=== PATIENT | female | born 1990 | race American Indian/Alaskan Native ===

== ENCOUNTER 2020-06-03 18:50 | Emergency (ER) | payer OTHER ==
[2020-06-03] MEDS ORDERED: BUTALB/ACETAMINOPHEN/CAFFEINE TAB PO ONE (22:54)
[2020-06-03] MEDS ORDERED: IBUPROFEN 600 MG TAB PO ONE (22:55)
[2020-06-03] MEDS ORDERED: ONDANSETRON 4 MG ODT TAB PO ONE (22:55)
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
[2020-06-04 00:44] VITALS: BP 128/76
== END 2020-06-04 00:44 | disposition home or self-care (01) ==
LOC: ED 18:50
DX: S00.83XA Contusion of other part of head, initial encounter (principal); S00.03XA Contusion of scalp, initial encounter; Z98.890 Other specified postprocedural states; Z79.1 Long term (current) use of non-steroidal anti-inflammatories (NSAID); Z79.899 Other long term (current) drug therapy; Y04.2XXA Assault by strike against or bumped into by another person, initial encounter; Y93.89 Activity, other specified; Y92.89 Other specified places as the place of occurrence of the external cause; Y99.8 Other external cause status
CPT/HCPCS: 70450; 70486; Q0162

== ENCOUNTER 2020-09-26 15:31 | Emergency (ER) | payer OTHER ==
[2020-09-26 16:06] VITALS: BP 131/88
--- NOTE | 2020-09-26 17:13 | Event Note ---
ED Screening Note ED Screening Note: n/v that began 4 days ago no diarrhea no fever no abd pain no urinary symptoms no abnormal discharge PMHx none no allergies to meds LNMP: Jun 2020 has not seen anyone for this no vaginal bleeding st This initial assessment/diagnostic orders/clinical plan/treatment(s) is/are subject to change based on patients health status, clinical progression and re- assessment by fellow clinical providers in the ED. Further treatment and workup at subsequent clinical providers discretion. Patient/guardian urged not to elope from the ED as their condition may be serious if not clinically assessed and managed. Initial orders include: labs, ua, us
[2020-09-26 17:57] LABS: Alanine Aminotransferase 41 units/L (7-56); Albumin 3.9 g/dL (3.9-5); Blood Urea Nitrogen 8 mg/dL (7-17); Calcium 9.7 mg/dL (8.4-10.2); Hemolysis Index 10
[2020-09-26 17:58] LABS: Bilirubin,Urine NEG (Negative); Blood,Urine NEG (Negative); Color,Urine Amber (Yellow); Mucus,Urine FEW /HPF; RBC,Urine < 1.0 /HPF (0.0-6.0)
[2020-09-26 18:04] LABS: BUN/Creatinine Ratio 11
[2020-09-26 18:06] LABS: Basophils % (Auto) 0.2 % (0.0-1.8); Eosinophils # (Auto) 0.1 K/mm3 (0.0-0.4); Eosinophils % (Auto) 0.5 % (0.0-4.3); Hematocrit 44.3 % (30.3-42.9); Hemoglobin 15.1 gm/dl (10.1-14.3); Lymphocytes # (Auto) 2.8 K/mm3 (1.2-5.4); Lymphocytes % (Auto) 18.5 % (13.4-35.0); Mean Corpuscular HGB Conc 34 % (30-34); Mean Corpuscular Volume 90 fl (79-97); Monocytes # (Auto) 1.4 K/mm3 (0.0-0.8); Monocytes % (Auto) 9.5 % (0.0-7.3); Platelet Count 306 K/mm3 (140-440); Red Blood Count 4.93 M/mm3 (3.65-5.03); Red Cell Distribution Width 13.8 % (13.2-15.2)
--- NOTE | 2020-09-26 18:15 | Ultrasound Report ---
ULTRASOUND OBSTETRIC, 09/26/2020 CLINICAL INFORMATION/INDICATION: Nausea and vomiting in early . COMPARISON: None FINDINGS: There is a single intrauterine . BPD = 3.2 cm = 16 weeks, 1 day(s). Head circumference = 12.2 cm = 16 weeks, 1 day(s). Abdominal circumference = 10.0 cm = 15 weeks, 6 day(s). Femur length = 2.0 cm = 16 weeks, 0 day(s). Overall estimated sonographic age = 16 weeks, 0 day(s). heart rate is 143 beats per minute. Estimated weight is 141 grams. position is variable. Placenta is posterior and grade 0 . Amniotic fluid volume appears within normal limits. Impression: 1. Single living intrauterine with estimated sonographic age of 16 weeks, 0 day(s). Signer Name: Adalgisa Kirby MD Signed: 09/26/2020 6:11 PM Workstation Name: [id number]
[2020-09-26] MEDS ORDERED: diphenhydrAMINE 50 MG/ML VIAL IV STA (21:35)
[2020-09-26] MEDS ORDERED: METOCLOPRAMIDE 10 MG/2 ML INJ IV STA (21:35)
[2020-09-26] MEDS ORDERED: SODIUM CHLORIDE 0.9% 1000 ML 1,000 ML IV ONE (21:35)
--- NOTE | 2020-09-26 21:50 | Emergency Department Report ---
ED General Adult HPI - General Chief complaint: Nausea/Vomiting/Diarrhea Stated complaint: CNAT KEEP FOOD OR LIQUID DOWN Time Seen by Provider: 09/26/20 17:12 Source: patient Mode of arrival: Ambulatory Limitations: No Limitations - History of Present Illness Initial comments: 29-year-old [place] female [facility] emerge department complaining of a 2-week h istory of nausea which has been followed by nausea and vomiting the past 5 to 6 days. States the she has been unable to get rid of the sensation in regards of which [id number]-[id number] treatment she is try to utilize. She is taken 5 home test and they were all positive but she states at this present time she is still in denial about her to present to the emergency department for confirmation and treatment of her nausea and vomiting. She reports no abdominal pain, no flank pain, no fever, chills, sweats. No hemoptysis, no hematemesis, no hematochezia, no chest pain, no back pain. Reports no cramping. Radiation: non-radiation Quality: dull Consistency: constant Improves with: none Worsens with: none ([place]) - Related Data Previous Rx's Medication Instructions Recorded Last Taken Type Ibuprofen [Motrin 800 MG tab] 800 mg PO Q8HR #30 tablet 12/30/18 Unknown Rx metroNIDAZOLE [Flagyl] 500 mg PO BID 10 Days #20 tab 12/30/18 Unknown Rx Butalb/Acetamin/Caff 50-325-40 1 tab PO Q6HR PRN #15 tab 06/04/20 Unknown Rx [Fioricet 50-325-40] tiZANidine [Zanaflex 4mg TAB] 4 mg PO Q8H PRN #15 tablet 06/04/20 Unknown Rx traMADoL [Ultram] 50 mg PO Q6HR PRN #12 tablet 06/04/20 Unknown Rx Doxylamine Succinate/Vit B6 1 each PO Q6HR #10 tablet. 09/26/20 Unknown Rx [Jodi Johansen 10-10 mg Tablet] Vit,Joshua 74/Iron/Folic 1 each PO DAILY #30 tablet 09/26/20 Unknown Rx [ Low Iron Tablet] Allergies Allergy/AdvReac Type Severity Reaction Status Date / Time No Known Allergies Allergy Verified 09/26/20 16:06 ED Review of Systems ROS: Stated complaint: CNAT KEEP FOOD OR LIQUID DOWN Other details as noted in HPI ED Past Medical Hx - Past Medical History Previous Medical History?: No - Surgical History Additional Surgical History: right ankle surgery - Social History Smoking Status: Never Smoker Substance Use Type: None - Medications Home Medications: Home Medications Medication Instructions Recorded Confirmed Last Taken Type Ibuprofen [Motrin 800 MG tab] 800 mg PO Q8HR #30 tablet 12/30/18 Unknown Rx metroNIDAZOLE [Flagyl] 500 mg PO BID 10 Days #20 tab 12/30/18 Unknown Rx Butalb/Acetamin/Caff 50-325-40 1 tab PO Q6HR PRN #15 tab 06/04/20 Unknown Rx [Fioricet 50-325-40] tiZANidine [Zanaflex 4mg TAB] 4 mg PO Q8H PRN #15 tablet 06/04/20 Unknown Rx traMADoL [Ultram] 50 mg PO Q6HR PRN #12 tablet 06/04/20 Unknown Rx Doxylamine Succinate/Vit B6 1 each PO Q6HR #10 tablet. 09/26/20 Unknown Rx [Jodi Johansen 10-10 mg Tablet] Vit,Joshua 74/Iron/Folic 1 each PO DAILY #30 tablet 09/26/20 Unknown Rx [ Low Iron Tablet] ED Physical Exam - General Limitations: No Limitations General appearance: alert, in no apparent distress, other (Awake alert no ataxia no acute distress patient is jovial currently eating some barbecue Fritos in conjunction with [employer]) - Head Head exam: Present: atraumatic, normocephalic - Eye Eye exam: Present: normal appearance - ENT ENT exam: Present: mucous membranes moist - Neck Neck exam: Present: normal inspection - Respiratory Respiratory exam: Present: normal lung sounds bilaterally. Absent: respiratory distress - Cardiovascular Cardiovascular Exam: Present: regular rate, normal rhythm. Absent: systolic murmur, diastolic murmur, rubs, gallop - GI/Abdominal GI/Abdominal exam: Present: soft, normal bowel sounds - Extremities Exam Extremities exam: Present: normal inspection - Back Exam Back exam: Present: normal inspection - Neurological Exam Neurological exam: Present: alert, oriented X3 - Psychiatric Psychiatric exam: Present: normal affect, normal mood - Skin Skin exam: Present: warm, dry, intact, normal color. Absent: rash ED Course Vital Signs 09/26/20 16:03 Temperature 98 F Pulse Rate 117 H Respiratory 18 Rate Blood Pressure 131/88 O2 Sat by Pulse 98 Oximetry ED Medical Decision Making - Lab Data Result diagrams: 09/26/20 17:23 09/26/20 17:23 Lab Results 09/26/20 09/26/20 09/26/20 Range/Units 17:15 17:23 17:23 WBC 14.9 H (4.5-11.0) K/mm3 RBC 4.93 (3.65-5.03) M/mm3 Hgb 15.1 H (10.1-14.3) gm/dl Hct 44.3 H (30.3-42.9) % MCV 90 (79-97) fl MCH 31 (28-32) pg MCHC 34 (30-34) % RDW 13.8 (13.2-15.2) % Plt Count 306 (140-440) K/mm3 Lymph % (Auto) 18.5 (13.4-35.0) % [place] % (Auto) 9.5 H (0.0-7.3) % Eos % (Auto) 0.5 (0.0-4.3) % Baso % (Auto) 0.2 (0.0-1.8) % Lymph # (Auto) 2.8 (1.2-5.4) K/mm3 [place] # (Auto) 1.4 H (0.0-0.8) K/mm3 Eos # (Auto) 0.1 (0.0-0.4) K/mm3 Baso # (Auto) 0.0 (0.0-0.1) K/mm3 Seg Neutrophils % 71.3 H (40.0-70.0) % Seg Neutrophils # 10.6 H (1.8-7.7) K/mm3 Sodium 137 (137-145) mmol/L Potassium 3.3 L (3.6-5.0) mmol/L Chloride 100.7 (98-107) mmol/L Carbon Dioxide 20 L (22-30) mmol/L Anion Gap 20 mmol/L BUN 8 (7-17) mg/dL Creatinine 0.7 (0.6-1.2) mg/dL Estimated GFR > 60 ml/min BUN/Creatinine Ratio 11 % Glucose 106 H (65-100) mg/dL Calcium 9.7 (8.4-10.2) mg/dL Total Bilirubin 0.50 (0.1-1.2) mg/dL AST 28 (5-40) units/L ALT 41 (7-56) units/L Alkaline Phosphatase 158 H (35-129) units/L Total Protein 7.7 (6.3-8.2) g/dL Albumin 3.9 (3.9-5) g/dL Albumin/Globulin Ratio 1.0 % Lipase 17 (13-60) units/L HCG, Quant (0-4) mIU/mL Urine Color Juanita (Yellow) Urine Turbidity Slightly-cloudy (Clear) Urine pH 6.0 (5.0-7.0) Ur Specific Peck 1.021 (1.003-1.030) Urine Protein 30 mg/dl (Negative) mg/dL Urine Glucose (UA) Neg (Negative) mg/dL Urine Ketones 80 (Negative) mg/dL Urine Blood Neg (Negative) Urine Nitrite Neg (Negative) Urine Bilirubin Neg (Negative) Urine Urobilinogen 4.0 (<2.0) mg/dL Ur Leukocyte Esterase Tr (Negative) Urine WBC (Auto) 1.0 (0.0-6.0) /HPF Urine RBC (Auto) < 1.0 (0.0-6.0) /HPF U Epithel Cells (Auto) < 1.0 (0-13.0) /HPF Urine Mucus Few /HPF // Range/Units 17:23 WBC (4.5-11.0) K/mm3 RBC (3.65-5.03) M/mm3 Hgb (10.1-14.3) gm/dl Hct (30.3-42.9) % MCV (79-97) fl MCH (28-32) pg MCHC (30-34) % RDW (13.2-15.2) % Plt Count (140-440) K/mm3 Lymph % (Auto) (13.4-35.0) % [place] % (Auto) (0.0-7.3) % Eos % (Auto) (0.0-4.3) % Baso % (Auto) (0.0-1.8) % Lymph # (Auto) (1.2-5.4) K/mm3 [place] # (Auto) (0.0-0.8) K/mm3 Eos # (Auto) (0.0-0.4) K/mm3 Baso # (Auto) (0.0-0.1) K/mm3 Seg Neutrophils % (40.0-70.0) % Seg Neutrophils # (1.8-7.7) K/mm3 Sodium (137-145) mmol/L Potassium (3.6-5.0) mmol/L Chloride (98-107) mmol/L Carbon Dioxide (22-30) mmol/L Anion Gap mmol/L BUN (7-17) mg/dL Creatinine (0.6-1.2) mg/dL Estimated GFR ml/min BUN/Creatinine Ratio % Glucose (65-100) mg/dL Calcium (8.4-10.2) mg/dL Total Bilirubin (0.1-1.2) mg/dL AST (5-40) units/L ALT (7-56) units/L Alkaline Phosphatase (35-129) units/L Total Protein (6.3-8.2) g/dL Albumin (3.9-5) g/dL Albumin/Globulin Ratio % Lipase (13-60) units/L HCG, Quant [id number] H (0-4) mIU/mL Urine Color (Yellow) Urine Turbidity (Clear) Urine pH (5.0-7.0) Ur Specific Peck (1.003-1.030) Urine Protein (Negative) mg/dL Urine Glucose (UA) (Negative) mg/dL Urine Ketones (Negative) mg/dL Urine Blood (Negative) Urine Nitrite (Negative) Urine Bilirubin (Negative) Urine Urobilinogen (<2.0) mg/dL Ur Leukocyte Esterase (Negative) Urine WBC (Auto) (0.0-6.0) /HPF Urine RBC (Auto) (0.0-6.0) /HPF U Epithel Cells (Auto) (0-13.0) /HPF Urine Mucus /HPF - Medical Decision Making Female presents emergency department complaining of nausea and vomiting without diarrhea. The patient is overall well-appearing and suspected to have hyperemesis gravidarum. Given the history of examination he does not appear to be an emergency cause for the symptoms such as small bowel obstruction, coronary syndrome, bowel ischemia, DKA, pancreatitis, appendicitis, acute abdomen no emergent problem. Patient was treated with Reglan, Benadryl, fluids as well as vitamin D6. After treatment patient is feeling much better tolerating p.o. fluids shows no signs of dehydration Critical care attestation.: If time is entered above; I have spent that time in minutes in the direct care of this critically ill patient, excluding procedure time. ED Disposition Clinical Impression: Hyperemesis gravidarum Disposition: OP ADMIT IP TO THIS HOSP Is pt being admited?: No Does the pt Need Aspirin: No Condition: Stable Instructions: Hyperemesis Gravidarum Prescriptions: Doxylamine Succinate/Vit B6 [Jodi Johansen 10-10 mg Tablet] 1 each PO Q6HR #10 tablet. Vit,Joshua 74/Iron/Folic [ Low Iron Tablet] 1 each PO DAILY #30 tablet Referrals: [facility] [Provider Group] - 3-5 Days [facility] [Provider Group] - 3-5 Days
== END 2020-09-27 00:04 | disposition admitted as inpatient to this hospital (09) ==
LOC: ED 15:31
DX: O21.0 Mild hyperemesis gravidarum (principal); Z98.890 Other specified postprocedural states; Z79.899 Other long term (current) drug therapy; Z3A.16 16 weeks gestation of pregnancy
CPT/HCPCS: 36415; 76805; 80053; 81001; 83690; 84702; 85025; 96361; 96374; 96375; 99284; J1200; J2765; J7030

== ENCOUNTER 2020-12-26 16:44 | Outpatient (CLI) | payer OTHER, MEDICAID ==
--- NOTE | 2020-12-26 17:27 | History and Physical Report ---
History of Present Illness Date of examination: 12/26/20 Date of admission: 12/26/20 Chief complaint: PIH,37 WEEKS IUP, PREVIOUS C/S X1 History of present illness: The patient is a 30-year-old -[place] female. She is a 2 para 1-0-0-1 female. Who is now at 37 weeks with a history of chronic and what we plan to do is to treat her with magnesium sulfate hydralazine and labetalol. We will try a trial of labor with Cervidil. History of previous section. She desires trial of labor after . This was discussed with patient she understands negative does not work she may have to have a repeat section being well cared for at one of the local clinics. [facility] The clinic her blood type was B+ antibody screen was negative hematocrit was 35.3% rubella was immune RPR was nonreactive urine screen culture was negative hepatitis B using hemoglobin V was negative HIV test was negative hemoglobin electrophoresis was AAA. Chlamydia and gonorrhea tests were negative. She ultrasound done on 08/30/2020 was considered normal she had a MSAFP markers which was negative. Repeat hemoglobin hematocrit was 30.10 diabetic screen was normal 527 RPR was negative repeat HIV status is negative she had 19 visits the ED the was 01/13/2020 1 repeat section was done [facility] baby weight 6 pounds 9 ounces.. She does have a sickle trait has a history of ultrasound family. Her group B strep status was negative her creatinine was 0.45 in the office BUN was 424-hour protein urine was 220 mg per glomerular was 60 mL/min quad screen was negative for neural tube defect Patient is now 37 weeks Past History Past Medical History: hypertension Past Surgical History: section Family/Genetic History: other (AUTISM) Social history: - Obstetrical History Expected Date of Delivery: 01/12/21 Actual Gestation: 37 Week(s) 4 Day(s) : 2 Para: 1 Hx # Term Pregnancies: 1 Number of Pregnancies: 0 Spontaneous Abortions: 0 Induced : 1 Medications and Allergies Allergies Allergy/AdvReac Type Severity Reaction Status Date / Time No Known Allergies Allergy Verified 09/26/20 16:06 Home Medications Medication Instructions Recorded Confirmed Last Taken Type Ibuprofen [Motrin 800 MG tab] 800 mg PO Q8HR #30 tablet 12/30/18 Unknown Rx metroNIDAZOLE [Flagyl] 500 mg PO BID 10 Days #20 tab 12/30/18 Unknown Rx Butalb/Acetamin/Caff 50-325-40 1 tab PO Q6HR PRN #15 tab 06/04/20 Unknown Rx [Fioricet 50-325-40] tiZANidine [Zanaflex 4mg TAB] 4 mg PO Q8H PRN #15 tablet 06/04/20 Unknown Rx traMADoL [Ultram] 50 mg PO Q6HR PRN #12 tablet 06/04/20 Unknown Rx Doxylamine Succinate/Vit B6 1 each PO Q6HR #10 tablet. 09/26/20 Unknown Rx [Diclegis Dr 10-10 mg Tablet] Vit,Joshua 74/Iron/Folic 1 each PO DAILY #30 tablet 09/26/20 Unknown Rx [ Low Iron Tablet] Review of Systems All systems: negative - Vital Signs Vital signs: Vital Signs Pulse BP 94 H 134/80 12/26/20 17:10 12/26/20 17:10 Temp Pulse Resp BP Pulse Ox 88 126/76 12/26/20 17:11 12/26/20 17:11 - Physical Exam Breasts: Positive: normal Cardiovascular: Regular rate, Normal S1, Normal S2 Lungs: Positive: Clear to auscultation, Normal air movement Abdomen: Positive: normal appearance, normal bowel sounds Genitourinary (Female): Positive: normal external genitalia Vulva: both: normal Vagina: Positive: normal moisture. Negative: discharge Uterus: Positive: enlarged (37 WKS SIZE) Adnexa: both: normal Anus/Rectum: Positive: normal perianal skin, heme negative. Negative: rectal mass, hemorrhoids Extremities: Deep Tendon Reflex Grade: Normal +2 - Obstetrical FHR: category 1 Uterine Contraction Monitor Mode: External Cervical Dilatation: 2 Cervical Effacement Percentage: 50 station: -4 Uterine Contraction Frequency (min): Q10MIN Uterine Contraction Pattern: Irregular Uterine Tone Measurement Phase: Resting Uterine Contraction Intensity: Moderate Results All other labs normal. Assessment and Plan CHRONIC HBP PREVIOUS C/S X 1 37 WKS IUP PLAN MAG SULFATE, LABETALOL AND CERVIDIL..
[2020-12-26] MEDS ORDERED: LACTATED RINGERS 500 ML IV ONE (17:40)
[2020-12-26 18:36] LABS: Hematocrit 33.3 % (30.3-42.9); Hemoglobin 11.4 gm/dl (10.1-14.3); Mean Corpuscular HGB Conc 34 % (30-34); Mean Corpuscular Volume 86 fl (79-97); Platelet Count 250 K/mm3 (140-440); Red Cell Distribution Width 14.5 % (13.2-15.2)
[2020-12-26 18:59] LABS: Alanine Aminotransferase 13 units/L (7-56); Uric Acid 6.4 mg/dL (3.5-7.6)
--- NOTE | 2020-12-26 19:02 | Ultrasound Report ---
BIOPHYSICAL PROFILE HISTORY: Evaluate well-being. FINDINGS: Biophysical profile was performed and is normal at 88. heart tones are normal at 144 bpm. IMPRESSION: Normal biophysical profile of 8. Signer Name: Bayron Cottrell MD Signed: 12/26/2020 6:58 PM Workstation Name: [id number]
[2020-12-26 19:43] VITALS: BP 123/81
== END 2020-12-26 19:46 | disposition home or self-care (01) ==
LOC: TRG 16:44 → APU 16:46 → TRG 19:46
DX: O13.3 Gestational [pregnancy-induced] hypertension without significant proteinuria, third trimester (principal); Z3A.29 29 weeks gestation of pregnancy
CPT/HCPCS: 36415; 59025; 76819; 82565; 83615; 84450; 84460; 84550; 85027; 88307